=== PATIENT | female | born 1930 | race Caucasian/White ===

== ENCOUNTER 2021-02-21 12:19 | Inpatient (IN) | payer OTHER, MEDICAID ==
[~2021-02-21] VITALS: Ht 157.5 cm; Wt 45.4 kg
[2021-02-21] MEDS ORDERED: cefTRIAXone 1,000 MG in DEXT 5% MINI-BAG PLUS 50 ML IV ONE (12:25)
--- NOTE | 2021-02-21 12:31 | NUR ---
PT TAKEN TO CT SCAN VIA [facility]
[2021-02-21 12:33] VITALS: BP 141/74
--- NOTE | 2021-02-21 12:41 | NUR ---
PT TAKEN TO ER BED 7 VIA [facility].
--- NOTE | 2021-02-21 12:41 | NUR ---
PT RETURNED FROM CT SCAN. XRAY AT BEDSIDE
--- NOTE | 2021-02-21 12:41 | NUR ---
DRESSING MACHINE OPERATOR AT PT BEDSIDE.
--- NOTE | 2021-02-21 13:00 | NUR ---
89/F CHAO FROM [facility]. PER EMS STAFF CALLED 911 BECAUSE PATIENT WAS BEING AGGRESSIVE TOWARDS STAFF. EMS STATING PATIENT HAS NO C/O AT THIS TIME, REPORTS WAS D[place] [facility] WITH DX OF PNA. GCS 14. PT IS CONFUSED. ON ROOM AIR. MEDHX: DEMENTIA, HTN, OSTEOPOROSIS, CHOLESTEROL ALLERGIES: NKA
--- NOTE | 2021-02-21 13:10 | NUR ---
# 16 FR Urinary catheter inserted utilizing sterile technique. Immediate return of 30 ml YELLOW urine noted. Urine sample collected and sent to lab. Pt tolerated procedure WELL.
--- NOTE | 2021-02-21 13:10 | NUR ---
BLOOD LABS AND ARTURO SWAB COLLECTED AND SENT TO LAB [facility] CPT
[2021-02-21] MEDS ORDERED: cefTRIAXone 1,000 MG VIAL ONE (13:12)
[2021-02-21 13:53] LABS: APPEARANCE,URINE CLEAR (CLEAR); BILIRUBIN,URINE NEGATIVE (NEGATIVE); BLOOD, URINE TRACE-I (NEGATIVE); COLOR,URINE YELLOW (YELLOW); LEUKOCYTE ESTERASE ,URINE NEGATIVE (NEGATIVE); NITRITE, URINE NEGATIVE (NEGATIVE); UGLUCOSE NEGATIVE (NEGATIVE)
[2021-02-21 14:04] LABS: ALBUMIN 3.6 g/dL (3.4-5.0); ASPARTATE AMINOTRANSFERASE 41 U/L (15-37); CARBON DIOXIDE 29.9 mmol/L (21-32); CHLORIDE 104 mmol/L (98-107); CREATININE 0.9 mg/dL (0.6-1.3); GLUCOSE 127 mg/dL (74-106); POTASSIUM 3.9 mmol/L (3.5-5.1); SODIUM SERUM 140 mmol/L (136-145); TOTAL BILIRUBIN 0.5 mg/dL (0.0-1.0); UREA NITROGEN, BLOOD 16 mg/dL (7-18)
--- NOTE | 2021-02-21 15:30 | NUR ---
PER DR MCCOY, HOLD ORDERS FOR CT SCAN WITH CONTRAST
[2021-02-21 15:43] LABS: BASOPHILS # (AUTO) 0.1 K/uL (0.00-0.22); BASOPHILS % (AUTO) 0.8 % (0.0-2.0); EOSINOPHILS % (AUTO) 0.5 % (0.0-4.0); HEMATOCRIT 38.1 % (36-48); HEMOGLOBIN 12.9 g/dL (12.0-16.0); LYMPHOCYTES # (AUTO) 0.7 K/uL (2.5-16.5); LYMPHOCYTES % (AUTO) 8.7 % (20.5-51.1); MEAN CORPUSCULAR HEMOGLOBIN 31 pg (27-31); MEAN CORPUSCULAR HGB CONC 34 g/dL (33-37); MEAN CORPUSCULAR VOLUME 90.6 fL (80-94); MONOCYTES # (AUTO) 0.5 K/uL (0.8-1.0); MONOCYTES % (AUTO) 7.3 % (1.7-9.3); NEUTROPHILS # (AUTO) 6.2 K/uL (1.8-7.7); NEUTROPHILS % (AUTO) 82.7 % (42.2-75.2); PLATELET COUNT (AUTO) 267 K/uL (140-450); RED CELL DISTRIBUTION WIDTH 14.2 % (11.6-13.7); WHITE BLOOD COUNT (AUTO) 7.5 K/uL (4.8-10.8)
[2021-02-21] MEDS ORDERED: ASPI-1822 PO (15:52)
[2021-02-21] MEDS ORDERED: ATOR20TA PO (15:52)
[2021-02-21] MEDS ORDERED: DONE10TA10 PO (15:52)
[2021-02-21] MEDS ORDERED: HYDR-4004 PO (15:52)
[2021-02-21] MEDS ORDERED: FOS70 PO (15:52)
--- NOTE | 2021-02-21 16:28 | NUR ---
Patient will be admitted to care of DR SUAREZ. Admited to MED SURG. Will go to room 122 B. Belongings list completed. Report to ALEX REARDON.
--- NOTE | 2021-02-21 16:30 | NUR ---
REPORT RECEIVED FROM ER NURSE. PT WILL BE TRANSPORTED TO ROOM 122B UNDER DR SUAREZ.
[2021-02-21 16:35] VITALS: BP 155/75
--- NOTE | 2021-02-21 16:45 | NUR ---
PT ARRIVED ON FLOOR VIA GURNEY, PATIENT MOVED TO BED WITH ASSISTANCE. ON ROOM AIR, NO S/S OF DISTRESS OR SOB NOTED. RAPID NEGATIVE. IV SITE LAC 20G INTACT, ASYMPTOMATIC, SL. PATIENT DENIES PAIN. DX AMS AND PNA. PATIENT LUXEMBOURGISH SPEAKING. CONFUSED BUT OBEYS COMMANDS. ORIENTED PATIENT TO ROOM, BATHROOM, CALL LIGHT, AND TV. SAFETY PRECAUTIONS IN PLACE, CALL LIGHT IN PLACE, WILL CONTINUE TO MONITOR PATIENT.
--- NOTE | 2021-02-21 16:55 | NUR ---
PATIENT AMBULATED TO BATHROOM WITH ASSIST. PATIENT VOIDED. NOW BACK IN BED, NO COMPLAINTS AT THIS TIME. WILL CONTINUE TO MONITOR PATIENT. CALLED DR. SUAREZ FOR ADMIT ORDERS.
[2021-02-21] MEDS ORDERED: guaiFENesin DM 200/20 MG-10 ML 10 ML UDC PO PRN (17:40)
[2021-02-21] MEDS ORDERED: HYDROcodone/APAP 7.5/325 MG 1 TAB PO PRN (17:40)
[2021-02-21] MEDS ORDERED: ONDANSETRON 4 MG/2 ML VIAL IM/IVP PRN (17:40)
[2021-02-21] MEDS ORDERED: ZOLPIDEM 5 MG TAB PO PRN (17:40)
[2021-02-21] MEDS: DEXT 5% /NACL 0.9% 1,000 ML IV SCH (17:40)
[2021-02-21] MEDS ORDERED: DOCUSATE SODIUM 100 MG GELCAP PO PRN (17:40)
[2021-02-21] MEDS ORDERED: ACETAMINOPHEN 325 MG TAB PO PRN (17:40)
[2021-02-21] MEDS ORDERED: POTASSIUM CHLORIDE 10 MEQ TABER PO PRN (17:40)
[2021-02-21] MEDS ORDERED: NACL 0.9% 1,000 ML IV ONE (17:45)
--- NOTE | 2021-02-21 17:45 | NUR ---
PRN ativan given as ordered by Dr. Meraz for agitation. Patient confused, attempting to get out of bed, tried to orient patient to room and hospital, patient got more agitated. Patient kicking and slapping staff.
[2021-02-21] MEDS ORDERED: LORazepam 2 MG/ML VIAL IVP PRN (17:55)
[2021-02-21] MEDS ORDERED: LORazepam 2 MG/ML VIAL ONE (17:57)
[2021-02-21] MEDS ORDERED: HALOPERIDOL IM 5 MG/ML VIAL IM PRN (18:15)
--- NOTE | 2021-02-21 18:15 | NUR ---
Dr Meraz on the floor, patient still kicking, slapping, and screaming. New orders in for bilateral soft wrist restraint. Patient now resting in bed, bed alarm on, will continue to monitor patient.
[2021-02-21] MEDS ORDERED: PIPERACILLIN/TAZOBACTAM 3.375 GM VIAL IV ONE ×2 (18:41→23:00)
[2021-02-21] MEDS: PIPERACILLIN/TAZOBACTAM 3.375 GM in DEXTROSE 5% 50 ML IV SCH ×2 (18:42→23:10)
--- NOTE | 2021-02-21 18:50 | NUR ---
IV INFILTRATED, NEW IV INSERTED, ON LEFT FA 22 G. ORDERED ZOSYN STARTED. WILL CONTINUE TO MONITOR PATIENT.
--- NOTE | 2021-02-21 19:30 | NUR ---
RECEIVED PATIENT FROM AM SHIFT NURSE FOR CONTINUITY OF CARE. AWAKE WITH CONFUSION, ABLE TO MAKE SIMPLE NEEDS KNOWN. RESPIRATIONS EVEN, UNLABORED. NO S/S RESPIRATORY DISTRESS. S1/S2 AUSCULTATED. MEDSURG PATIENT. NO C/O PAIN. SKIN WARM, DRY. BSWR IN PLACE. ADEQUATE CIRCULATION TO BUE. SKIN INTEGRITY MAINTAINED. IV SITE TO LEFT FOREARM 22G PATENT/INTACT, INFUSING FLUIDS WELL. ABDOMEN SOFT, NONTENDER, NONDISTENDED. BOWEL SOUNDS ACTIVE x4 QUADRANTS. PATIENT IS INCONTINENT OF B/B. PLAN OF CARE DISCUSSED. SAFETY PRECAUTIONS IN PLACE.
--- NOTE | 2021-02-21 19:30 | NUR ---
REPORT GIVEN TO SERVICE ORDER EXPEDITER RN. PATIENT RESTING IN BED. NO COMPLAINTS AT THIS TIME.
[2021-02-21 19:59] LABS: PROTHROMBIN TIME 10.4 secs (10.8-13.4)
[2021-02-21 20:31] LABS: CHOL/HDL RATIO 1.5 (1-4.5); FREE T4 (FREE THYROXINE) 0.94 ng/dL (0.76-1.46); MAGNESIUM 2.1 mg/dL (1.8-2.4); PHOSPHORUS 3.5 mg/dL (2.5-4.9); THYROID STIMULATING HORMONE 3.14 uIU/mL (0.34-3.74)
[2021-02-21] MEDS ORDERED: DONEPEZIL 10 MG TAB PO SCH (21:00)
--- NOTE | 2021-02-21 21:30 | NUR ---
RELEASED PATIENT FROM BSWR TO EAT SNACKS. PATIENT GREW AGGRESSIVE AND RESTRAINTS REPLACED. PATIENT VERY CONFUSED. ALL OTHER NEEDS MET. FREQUENT ROUNDS BY ALL STAFF.
[2021-02-21] MEDS: ATORVASTATIN 20 MG TAB PO SCH (21:32)
--- NOTE | 2021-02-21 23:27 | NUR ---
INCONTINENT CARE RENDERED. NO S/S RESPIRATORY DISTRESS. DENIES PAIN. CALL LIGHT IN REACH. SAFETY PRECAUTIONS IN PLACE.
[2021-02-22] VITALS: BP 119/51
--- NOTE | 2021-02-22 01:25 | NUR ---
MADE ROUNDS. PATIENT IS ASLEEP. NO S/S RESPIRATORY DISTRESS. PATIENT IS CLEAN/DRY. CALL LIGHT WITHIN REACH. SAFETY PRECAUTIONS IN PLACE.
--- NOTE | 2021-02-22 03:00 | NUR ---
INCONTINENT CARE RENDERED. NO S/S RESPIRATORY DISTRESS. NO C/O PAIN. BSWR IN PLACE. ADEQUATE CIRCULATION TO BUE. NO EPISODE OF AGGRESSIVE BEHAVIOR AT THIS TIME, HOWEVER CONTINUES TO NEED RESTRAINT DUE TO PULLING AT LINES. BSWR RELEASED PER PROTOCOL. CALL LIGHT IN REACH. SAFETY PRECAUTIONS IN PLACE.
[2021-02-22] MEDS ORDERED: PIPERACILLIN/TAZOBACTAM 3.375 GM VIAL IV ONE (05:04)
[2021-02-22] MEDS: PIPERACILLIN/TAZOBACTAM 3.375 GM in DEXTROSE 5% 50 ML IV SCH ×3 (05:09→20:17)
--- NOTE | 2021-02-22 05:30 | NUR ---
ALL NEEDS ANTICIPATED AND MET. INCONTINENT CARE RENDERED. NO S/S RESPIRATORY DISTRESS. NO C/O PAIN. CALL LIGHT IN REACH. SAFETY PRECAUTIONS IN PLACE.
--- NOTE | 2021-02-22 07:26 | NUR ---
ENDORSED PATIENT TO AM SHIFT NURSE FOR CONTINUITY OF CARE.
--- NOTE | 2021-02-22 07:30 | NUR ---
RECEIVED PATIENT FROM WELLNESS RN NURSE FOR CONTINUITY OF CARE. AOX1. RESPIRATIONS EVEN, UNLABORED. NO S/S RESPIRATORY DISTRESS. SKIN WARM, DRY. BUE RESTRAINTS IN PLACE. SKIN INTEGRITY MAINTAINED. IV SITE TO LEFT FOREARM 22G PATENT/INTACT, INFUSING FLUIDS WELL. PLAN OF CARE DISCUSSED. SAFETY PRECAUTIONS IN PLACE. WILL CONTINUE TO MONITOR.
[2021-02-22 07:46] LABS: BASOPHILS # (AUTO) 0.1 K/uL (0.00-0.22); BASOPHILS % (AUTO) 0.7 % (0.0-2.0); EOSINOPHILS # (AUTO) 0.2 K/uL (0-0.4); EOSINOPHILS % (AUTO) 1.9 % (0.0-4.0); HEMATOCRIT 38.6 % (36-48); HEMOGLOBIN 12.7 g/dL (12.0-16.0); LYMPHOCYTES # (AUTO) 1.1 K/uL (2.5-16.5); MEAN CORPUSCULAR HEMOGLOBIN 30 pg (27-31); MEAN CORPUSCULAR HGB CONC 33 g/dL (33-37); MEAN CORPUSCULAR VOLUME 92.1 fL (80-94); MONOCYTES # (AUTO) 0.9 K/uL (0.8-1.0); MONOCYTES % (AUTO) 10.4 % (1.7-9.3); NEUTROPHILS # (AUTO) 6.4 K/uL (1.8-7.7); PLATELET COUNT (AUTO) 267 K/uL (140-450); RED BLOOD CELL COUNT(AUTO) 4.19 MIL/uL (4.20-5.40); RED CELL DISTRIBUTION WIDTH 14.2 % (11.6-13.7); WHITE BLOOD COUNT (AUTO) 8.6 K/uL (4.8-10.8)
[2021-02-22 08:00] VITALS: BP 163/70
[2021-02-22 08:05] LABS: ANION GAP 6.7 (8-16); CARBON DIOXIDE 30.9 mmol/L (21-32); CHLORIDE 106 mmol/L (98-107); CREATININE 0.9 mg/dL (0.6-1.3); GLUCOSE 94 mg/dL (74-106); POTASSIUM 3.6 mmol/L (3.5-5.1); SODIUM SERUM 140 mmol/L (136-145); UREA NITROGEN, BLOOD 17 mg/dL (7-18)
[2021-02-22] MEDS: hydroCHLOROthiazide 25 MG TAB PO SCH (09:28)
[2021-02-22] MEDS: PANTOPRAZOLE 40 MG TABEC PO SCH (09:28)
[2021-02-22] MEDS: ASPIRIN 81 MG TAB.CHEW PO SCH (09:28)
--- NOTE | 2021-02-22 09:30 | NUR ---
ALL SCHEDULED MEDS GIVEN. PT IS STABLE. NO DISTRESS NOTED. WILL CONTINUE TO MONITOR.
[2021-02-22] MEDS: DEXT 5% /NACL 0.9% 1,000 ML IV SCH (10:32)
--- NOTE | 2021-02-22 11:40 | NUR ---
DC BILATERAL RESTRAINTS. PATIENT IS STABLE. NO AGGRESSIVE BEHAVIOR WAS DISPLAYED.
--- NOTE | 2021-02-22 13:00 | NUR ---
ALL SCHEDULED MEDS GIVEN. PT IS STABLE. NO DISTRESS NOTED. WILL CONTINUE TO MONITOR.
--- NOTE | 2021-02-22 15:29 | NUR ---
PATIENT WAS SHOWING SIGNS OF INCREASED ANXIETY. ADMINISTERED HALDOL IM PER MD ORDERED.
[2021-02-22 16:00] VITALS: BP 125/44
--- NOTE | 2021-02-22 17:10 | NUR ---
CHECKED ON PATIENT. PT WAS ASLEEP. NOTED CHEST RISE AND FALL. NO DISTRESS NOTED. WILL CONTINUE TO MONITOR.
--- NOTE | 2021-02-22 19:12 | NUR ---
ENDORSED TO FLIGHT RADIO OFFICER NURSE FOR CONTINUITY OF CARE. PT IS STABLE.
--- NOTE | 2021-02-22 19:15 | NUR ---
RECEIVED REPORT FROM DAYSHIFT NURSE FOR CONTINUITY OF CARE. PT ON STABLE CONDITION
--- NOTE | 2021-02-22 19:52 | NUR ---
RECEIVED REPORT FROM DAYSNJFT NURSE FOR CONTINUITY OF CARE.
[2021-02-22 20:00] VITALS: BP 126/50
[2021-02-22] MEDS: ATORVASTATIN 20 MG TAB PO SCH (20:14)
--- NOTE | 2021-02-22 21:00 | NUR ---
ALL SCHEDULED MEDS GIVEN, PT TOLERATED WELL. NO SIGNS OF DISTRESS. SAFETY MEASURES IMPLEMENTED
[2021-02-23] MEDS: DEXT 5% /NACL 0.9% 1,000 ML IV SCH ×2 (03:14→19:40)
[2021-02-23 04:00] VITALS: BP 142/68
--- NOTE | 2021-02-23 04:00 | NUR ---
PATIENT RESTING ON BED, NO SIGNS OF DISTRESS. ON ROOM AIR, SAFETY MEASURES IMPLEMENTED.
[2021-02-23] MEDS: PIPERACILLIN/TAZOBACTAM 3.375 GM in DEXTROSE 5% 50 ML IV SCH ×3 (05:23→21:15)
[2021-02-23 05:56] LABS: ANION GAP 9.4 (8-16); CARBON DIOXIDE 30.2 mmol/L (21-32); CHLORIDE 105 mmol/L (98-107); CREATININE 1.1 mg/dL (0.6-1.3); GLUCOSE 88 mg/dL (74-106); POTASSIUM 3.6 mmol/L (3.5-5.1); SODIUM SERUM 141 mmol/L (136-145); UREA NITROGEN, BLOOD 17 mg/dL (7-18)
[2021-02-23 06:07] LABS: BASOPHILS # (AUTO) 0.1 K/uL (0.00-0.22); EOSINOPHILS # (AUTO) 0.1 K/uL (0-0.4); HEMATOCRIT 34.1 % (36-48); HEMOGLOBIN 11.5 g/dL (12.0-16.0); LYMPHOCYTES # (AUTO) 1.2 K/uL (2.5-16.5); LYMPHOCYTES % (AUTO) 20.2 % (20.5-51.1); MEAN CORPUSCULAR HEMOGLOBIN 31 pg (27-31); MEAN CORPUSCULAR HGB CONC 34 g/dL (33-37); MEAN CORPUSCULAR VOLUME 90.9 fL (80-94); MONOCYTES # (AUTO) 0.6 K/uL (0.8-1.0); MONOCYTES % (AUTO) 10.6 % (1.7-9.3); NEUTROPHILS # (AUTO) 3.8 K/uL (1.8-7.7); NEUTROPHILS % (AUTO) 66.2 % (42.2-75.2); PLATELET COUNT (AUTO) 251 K/uL (140-450); RED BLOOD CELL COUNT(AUTO) 3.75 MIL/uL (4.20-5.40); RED CELL DISTRIBUTION WIDTH 14.3 % (11.6-13.7); WHITE BLOOD COUNT (AUTO) 5.8 K/uL (4.8-10.8)
[2021-02-23 06:16] LABS: T4 (THYROXINE) 7.8 ug/dL (4.5-12.0)
--- NOTE | 2021-02-23 07:30 | NUR ---
RECEIVED BEDSIDE REPORT FROM STITCH BONDING MACHINE TENDER HELPER NURSE EDITA RN, PT RESTING IN BED, NO DISTRESS NOTED, IV TO L FA 22G, PATENT INTACT, INFUSING D5NS @ 40ML/HR, INFUSING WELL, PT ON ROOM AIR, NO SOB NOTED, INITIAL ASSESSMENT DONE, ALL SAFETY PRECAUTION MET, CALL LIGHT WITHIN REACH, WILL CONTINUE TO MONITOR.
--- NOTE | 2021-02-23 07:42 | NUR ---
ENDORSE PT TO DAYSHIFT NURSE FOR CONTINUITY OF CARE. PT STABLE
[2021-02-23 08:00] VITALS: BP 150/66
--- NOTE | 2021-02-23 08:56 | NUR ---
PATIENT HAS BEEN SCREENED AND CATEGORIZED HIGH NUTRITION RISK. PATIENT WILL BE SEEN WITHIN 1-2 DAYS OF ADMISSION. 02/23/[address]
[2021-02-23] MEDS: PANTOPRAZOLE 40 MG TABEC PO SCH (09:04)
[2021-02-23] MEDS: ASPIRIN 81 MG TAB.CHEW PO SCH (09:04)
[2021-02-23] MEDS: hydroCHLOROthiazide 25 MG TAB PO SCH (09:04)
--- NOTE | 2021-02-23 09:05 | NUR ---
DUE MEDICATIONS ADMINISTERED PT TOLERATED WELL, NO DISTRESS NOTED, WILL CONTINUE TO MONITOR.
--- NOTE | 2021-02-23 12:05 | NUR ---
DC PLANNING: EDEPAK SPOKE WITH MISSAEL AT [facility] ([phone]), SHE STATES THAT PATIENTS ADMISSION IS AUTHORIZED, TRACKING # [id number]. DISCUSSED OPTION OF PATIENT GOING BACK TO [facility] VS SNF IF IV ABX ARE NEEDED, MISSAEL STATES THAT [facility] WILL DECIDE WHERE PT/OT ARE GIVEN IF PATIENT REQUIRES THIS. PER MISSAEL THERAPISTS COULD GO TO [facility] OR THE PATIENT CAN DO OP THERAPY, P.T. NOTES WOULD HAVE TO BE FAXED FOR [facility] TO DETERMINE THIS. LIST OF CONTRACTED SNF'S GIVEN, [facility], [facility], [facility], [facility] AND [facility]. CONTRACTED NON-MEDICAL TRANSPORT IS [facility] ([phone]), [facility] ([phone]) AND [facility] (ASK FOR [facility], DISPATCH [phone]). TRANSPORT AUTH WILL BE GIVEN BY [facility] ONCE PATIENT IS DC'D, [facility] CAN ALSO PROVIDE NON-MEDICAL TRANSPORT UP UNTIL 2:PM. DEEPAK ALSO SPOKE WITH THE PATIENTS CHER ALCARAZ BY PHONE, PATIENT WAS LIVING AT HOME WITH 24/7 CAREGIVERS BUT HER DEMENTIA PROGRESSED AND THE PATIENT WAS PLACED IN MEMORY CARE AT [facility] 2 WEEKS AGO. DISCUSSED SNF VS [facility] DEPENDING ON NEEDS, SOURAV IN AGREEMENT WITH EITHER PLAN, DEEPAK WILL KEEP HER UPDATED ON PLAN AND DC DATE. PATIENT WAS EVALUATED BY P.T., BETTE STATES THAT PATIENT IS SBA WITH AMBULATION USING A FWW AND IS ABLE TO WALK ABOUT 50 FEET. WAITING FOR FINAL MD CLEARANCE AND CLINICAL STABILITY. DEEPAK WILL FOLLOW FOR NEEDS. Addendum: 02/24/21 at 1105 by Dipti Lozoya CM DC PLANNING: DEEPAK SPOKE WITH ALEXUS AT [facility], ASKED HER TO ARRANGE TRANSPORT BACK TO [facility], ALEXUS STATES SHE WILL HAVE TRANSPORT CALL CM WITH PICK-UP TIME. DEEPAK ALSO SPOKE WITH IHSAN ( [phone]) AT [employer], ORDERS FOR PT AND PT NOTES TO BE FAXED TO HER AT [phone] SO [facility] CAN ARRANGE PT SERVICES. DEEPAK ALSO INFORMED PATIENT PRIMARY CONTACT SOURAV ALCARAZ THAT PATIENT IS RETURNING TO [facility]. PATIENTS RN BLAKE WAS ALSO MADE AWARE OF THE PATIENTS PICK-UP TIME. CM WILL FOLLOW FOR NEEDS.
--- NOTE | 2021-02-23 12:05 | NUR ---
IV MEDICATION ZOSYN DUE, MEDICATION ADMINISTERED, PT TOLERATED WELL, NO DISTRESS NOTED, WILL CONTINUE TO MONITOR.
--- NOTE | 2021-02-23 13:25 | NUR ---
02/23/21 RD INITIAL ASSESSMENT COMPLETED PLEASE REFER TO NUTRITION ASSESSMENT UNDER CARE ACTIVITY FOR ESTIMATED NUTRITIONAL NEEDS. 1. CONTINUE PUREE DIET TOLERATED 2. IF PO INTAKE FALLS BELOW 50% CONSIDER ENSURE BID 3. RD TO FOLLOW-UP 3-5 DAYS, MODERATE RISK DAPHNE ROMERO, RD
[2021-02-23 16:00] VITALS: BP 149/57
--- NOTE | 2021-02-23 16:20 | NUR ---
PT STARTED SCREAMING, AND CONFUSED, STATED THERE IS ANOTHER SARWAT. CALMED PT DOWN AND REORIENT PT. PT CALM AND COOPERATIVE. WILL CONTINUE TO MONITOR.
--- NOTE | 2021-02-23 19:21 | NUR ---
ENDORSED PT TO MINING CAPTAIN NURSE EDITA REARDON FOR CONTINUOUS OF CARE.
--- NOTE | 2021-02-23 19:22 | NUR ---
RECEIVED REPORT FROM DAYSHIFT NURSE FOR CONTINUITY OF CARE. PT ON ROOM AIR, NO SIGNS OF DISTRESS.
[2021-02-23 20:00] VITALS: BP 120/51
--- NOTE | 2021-02-23 21:00 | NUR ---
ALL SCHEDULED MEDICATIONS GIVEN, PT TOLERATED WELL, NO SIGNS OF DISTRESS, PT ON ROOM AIR, SAFETY MEASURES IMPLEMENTED.
[2021-02-23] MEDS: ATORVASTATIN 20 MG TAB PO SCH (21:18)
[2021-02-23] MEDS: QUEtiapine FUMARATE 25 MG TAB PO SCH (21:18)
--- NOTE | 2021-02-24 | NUR ---
PT ASLEEP, NO SIGNS OF DISTRESS, ON ROOM AIR, SAFETY MEASURES IMPLEMENTED, CALL LIGHT WITHIN REACH.
[2021-02-24 00:19] VITALS: BP 120/51
--- NOTE | 2021-02-24 02:00 | NUR ---
PT ASLEEP NO SIGNS OF DISTRESS. ON ROOM AIR. SAFETY MEASURES IMPLEMENTED, CALL LIGHT WITHIN REACH.
[2021-02-24 04:00] VITALS: BP 124/62
[2021-02-24] MEDS: PIPERACILLIN/TAZOBACTAM 3.375 GM in DEXTROSE 5% 50 ML IV SCH (04:00)
[2021-02-24 06:08] LABS: ANION GAP 10.8 (8-16); CARBON DIOXIDE 30.8 mmol/L (21-32); CHLORIDE 104 mmol/L (98-107); CREATININE 1.2 mg/dL (0.6-1.3); GLUCOSE 99 mg/dL (74-106); POTASSIUM 3.6 mmol/L (3.5-5.1); SODIUM SERUM 142 mmol/L (136-145); UREA NITROGEN, BLOOD 14 mg/dL (7-18)
[2021-02-24 06:25] LABS: BASOPHILS # (AUTO) 0.1 K/uL (0.00-0.22); BASOPHILS % (AUTO) 1.3 % (0.0-2.0); EOSINOPHILS # (AUTO) 0.2 K/uL (0-0.4); EOSINOPHILS % (AUTO) 3.2 % (0.0-4.0); HEMATOCRIT 32.9 % (36-48); HEMOGLOBIN 11.1 g/dL (12.0-16.0); LYMPHOCYTES # (AUTO) 1.4 K/uL (2.5-16.5); LYMPHOCYTES % (AUTO) 24.5 % (20.5-51.1); MEAN CORPUSCULAR HEMOGLOBIN 30 pg (27-31); MEAN CORPUSCULAR HGB CONC 34 g/dL (33-37); MEAN CORPUSCULAR VOLUME 90.2 fL (80-94); MONOCYTES # (AUTO) 0.7 K/uL (0.8-1.0); MONOCYTES % (AUTO) 12.6 % (1.7-9.3); NEUTROPHILS # (AUTO) 3.3 K/uL (1.8-7.7); NEUTROPHILS % (AUTO) 58.4 % (42.2-75.2); PLATELET COUNT (AUTO) 234 K/uL (140-450); RED BLOOD CELL COUNT(AUTO) 3.65 MIL/uL (4.20-5.40); RED CELL DISTRIBUTION WIDTH 14.5 % (11.6-13.7); WHITE BLOOD COUNT (AUTO) 5.7 K/uL (4.8-10.8)
--- NOTE | 2021-02-24 07:24 | NUR ---
ENDORSE PT TO DAYSHIFT NURSE. PT ON STABLE CONDITION
--- NOTE | 2021-02-24 07:25 | NUR ---
RECEIVED BEDSIDE REPORT FROM METAL POURER NURSE PT SLEEPING, NO DISTRESS NOTED, IV TO LEFT FA 22G PATENT INTACT, INFUSING D5NS @ 40ML/HR, INFUSING WELL, PT ON ROOM AIR, NO SOB NOTED, INITIAL ASSESSMENT DONE, ALL SAFETY PRECAUTION MET, CALL LIGHT WITHIN REACH, WILL CONTINUE TO MONITOR.
[2021-02-24 08:00] VITALS: BP 134/51
[2021-02-24] MEDS: hydroCHLOROthiazide 25 MG TAB PO SCH (09:26)
[2021-02-24] MEDS: ASPIRIN 81 MG TAB.CHEW PO SCH (09:26)
[2021-02-24] MEDS: PANTOPRAZOLE 40 MG TABEC PO SCH (09:26)
[2021-02-24] MEDS: QUEtiapine FUMARATE 25 MG TAB PO SCH (09:27)
--- NOTE | 2021-02-24 09:38 | NUR ---
DUE MEDICATIONS ADMINISTERED, PT TOLERATED WELL, NO DISTRESS NOTED, WILL CONTINUE TO MONITOR.
[2021-02-24] MEDS ORDERED: ACET-1182 PO (09:59)
[2021-02-24] MEDS ORDERED: PANT40EC56 PO (09:59)
[2021-02-24] MEDS ORDERED: QUET25TA46 PO (09:59)
[2021-02-24] MEDS ORDERED: DOCU-299 PO (09:59)
[2021-02-24] MEDS ORDERED: AMOX-1000 PO (10:00)
[2021-02-24 11:30] VITALS: BP 134/51
--- NOTE | 2021-02-24 11:55 | NUR ---
ATTEMPTED TO CALL NIECE, NEXT OF KIN SOURAV NO ANSWER, UNABLE TO LEFT MESSAGE.
--- NOTE | 2021-02-24 12:00 | NUR ---
PT LEFT UNIT, VIA WHEELCHAIR, PICKED UP BY [facility] STAFF [facility].
--- NOTE | 2021-02-24 12:05 | NUR ---
CALLED ROSA KELLY NEXT OF KIN NEPHEW, NO ANSWER, LEFT MESSAGE.
== END 2021-02-24 12:26 | DRG 177 ==
LOC: MED 12:19 → MTU 15:44
PROVIDERS: ADMIT Family Medicine; ATTEND Family Medicine
DX: J69.0 Pneumonitis due to inhalation of food and vomit (principal); G93.41 Metabolic encephalopathy; J96.01 Acute respiratory failure with hypoxia; E78.5 Hyperlipidemia, unspecified; E86.0 Dehydration; F03.90 Unspecified dementia, unspecified severity, without behavioral disturbance, psychotic disturbance, mood disturbance, and anxiety; I10 Essential (primary) hypertension; I25.10 Atherosclerotic heart disease of native coronary artery without angina pectoris; R74.01 Elevation of levels of liver transaminase levels; E03.9 Hypothyroidism, unspecified; Z20.822 Contact with and (suspected) exposure to COVID-19; R13.10 Dysphagia, unspecified; F29 Unspecified psychosis not due to a substance or known physiological condition; Z79.899 Other long term (current) drug therapy; Z79.82 Long term (current) use of aspirin
CPT/HCPCS: 36415; 70450; 71045; 80048; 80053; 81003; 82150; 83036; 83605; 83690; 83735; 83880; 84100; 84436; 84439; 84443; 84479; 84484; 85025; 85610; 85730; 87040; 87081; 87086; 93005; 96365; 96375; 97110; 97112; 97116; 97163-GP; 97530; 99285; J0696; J1630; J1644; J2060; J2405; J2543; J7060

== ENCOUNTER 2021-03-01 11:38 | Inpatient (IN) | payer OTHER, MEDICAID ==
[~2021-03-01] VITALS: Ht 167.6 cm; Wt 63.5 kg
[~2021-03-01 11:38] MED LIST: ACET-1182 PO; AMOX-1000 PO; ASPI-1822 PO; ATOR20TA PO; DOCU-299 PO; DONE10TA10 PO; FOS70 PO; HYDR-4004 PO; PANT40EC56 PO; QUET25TA46 PO
--- NOTE | 2021-03-01 11:39 | NUR ---
PT CHAO VIA GURNEY TO BED 12.
[2021-03-01 12:04] VITALS: BP 118/68
[2021-03-01 12:24] LABS: APPEARANCE,URINE CLEAR (CLEAR); BILIRUBIN,URINE 1+ (NEGATIVE); BLOOD, URINE TRACE-I (NEGATIVE); COLOR,URINE YELLOW (YELLOW); LEUKOCYTE ESTERASE ,URINE 1+ (NEGATIVE); NITRITE, URINE NEGATIVE (NEGATIVE); UGLUCOSE NEGATIVE (NEGATIVE)
--- NOTE | 2021-03-01 12:26 | NUR ---
STRAIGHT CATH FR 15 INSERTED, DRAINED 100CC CLEAR YELLOW URINE. PT TOLERATED PROCEDURE WELL.
[2021-03-01 12:34] LABS: RBC,URINE 0-5 /HPF (0-5); WBC,URINE 0-5 /HPF (0-5)
--- NOTE | 2021-03-01 12:34 | NUR ---
89YO F BIBA FROM [facility] C/O GENERALIZED WEAKNESS X 2 DAYS. PT REFUSING TO EAT MEALS AND TAKE MEDICATIONS. IN ED, VSS. AOX1- TO NAME. PT IS COOPERATIVE AND CALM. CLEAR BREATH SOUNDS. HEART RATE NORMAL, REGULAR RHYTHM. MOTOR STRENGTH 4/5 ON ALL EXTREMITIES. 2 SIDERAILS UP. ERMD MADE AWARE OF PT STATUS. PMH: DEMENTIA, OSTEOPOROSIS, HLD, HTN MEDS: ALENDRONATE, ASA, ATORVASTATIN, HCTZ, DONEZEPIL NKA
[2021-03-01 14:02] LABS: BASOPHILS % (AUTO) 0.6 % (0.0-2.0); EOSINOPHILS % (AUTO) 0.2 % (0.0-4.0); HEMATOCRIT 34.2 % (36-48); HEMOGLOBIN 11.4 g/dL (12.0-16.0); LYMPHOCYTES # (AUTO) 0.7 K/uL (2.5-16.5); LYMPHOCYTES % (AUTO) 11.9 % (20.5-51.1); MEAN CORPUSCULAR HEMOGLOBIN 31 pg (27-31); MEAN CORPUSCULAR HGB CONC 33 g/dL (33-37); MEAN CORPUSCULAR VOLUME 91.7 fL (80-94); MONOCYTES # (AUTO) 0.6 K/uL (0.8-1.0); MONOCYTES % (AUTO) 9.6 % (1.7-9.3); NEUTROPHILS # (AUTO) 4.7 K/uL (1.8-7.7); NEUTROPHILS % (AUTO) 77.7 % (42.2-75.2); PLATELET COUNT (AUTO) 239 K/uL (140-450); RED BLOOD CELL COUNT(AUTO) 3.73 MIL/uL (4.20-5.40); RED CELL DISTRIBUTION WIDTH 14.3 % (11.6-13.7)
[2021-03-01 14:29] LABS: ALBUMIN 3.7 g/dL (3.4-5.0); ANION GAP 11.2 (8-16); ASPARTATE AMINOTRANSFERASE 40 U/L (15-37); CARBON DIOXIDE 30.2 mmol/L (21-32); CHLORIDE 106 mmol/L (98-107); CREATININE 1.1 mg/dL (0.6-1.3); GLUCOSE 91 mg/dL (74-106); POTASSIUM 3.4 mmol/L (3.5-5.1); SODIUM SERUM 144 mmol/L (136-145); TOTAL BILIRUBIN 0.6 mg/dL (0.0-1.0); UREA NITROGEN, BLOOD 42 mg/dL (7-18)
[2021-03-01] MEDS ORDERED: cefTRIAXone 1,000 MG VIAL ONE (15:26)
[2021-03-01] MEDS: NACL 0.9% 1,000 ML IV SCH (17:00)
--- NOTE | 2021-03-01 17:17 | NUR ---
CALLED VISHNU BURCH TO CHECK VACCINATION STATUS OF PATIENT. PER NABILA REARDON, PATIENT HAS NOT BEEN VACCINATED.
[2021-03-01] MEDS ORDERED: ONDANSETRON 4 MG/2 ML VIAL IVP PRN (17:20)
[2021-03-01] MEDS ORDERED: DOCUSATE SODIUM 100 MG GELCAP PO PRN (17:20)
[2021-03-01] MEDS ORDERED: ZOLPIDEM 5 MG TAB PO PRN (17:20)
[2021-03-01] MEDS ORDERED: MORPHINE SULFATE 2 MG/ML SYR IVP PRN (17:20)
[2021-03-01] MEDS ORDERED: ACETAMINOPHEN 325 MG TAB PO PRN (17:20)
[2021-03-01] MEDS ORDERED: MAG SULF 2000 MG/WATER PREMIX 50 ML IV PRN (17:20)
[2021-03-01] MEDS ORDERED: SODIUM PHOS / POTASSIUM PHOS 1 PKT PDR PO PRN (17:20)
[2021-03-01] MEDS ORDERED: POTASSIUM CHLORIDE 10 MEQ TABER PO PRN (17:20)
[2021-03-01] MEDS ORDERED: HYDROcodone/APAP 5/325 MG 1 TAB TAB PO PRN (17:20)
[2021-03-01] MEDS ORDERED: LORazepam 2 MG/ML VIAL IM/IVP PRN (17:20)
[2021-03-01 18:09] LABS: PROTHROMBIN TIME 10.6 secs (10.8-13.4)
[2021-03-01 18:20] LABS: CHOL/HDL RATIO 2.1 (1-4.5); FREE T4 (FREE THYROXINE) 0.97 ng/dL (0.76-1.46); PHOSPHORUS 3.2 mg/dL (2.5-4.9)
--- NOTE | 2021-03-01 19:20 | NUR ---
MRSA SWAB DONE. WALKED TO LAB
--- NOTE | 2021-03-01 19:22 | NUR ---
REPORT GIVEN TO CARON ESCALANTE. ALL CARES TRANSFERRED AT THIS TIME.
--- NOTE | 2021-03-01 19:22 | NUR ---
RECEIVED REPORT FROM CARON CRUZ FOR CONTINUITY OF CARE
--- NOTE | 2021-03-01 19:26 | NUR ---
Patient appears to be in low fowlers. Vital Signs within normal limits. Respirations even. Patient slightly restless and calling out incomprehensive words. AAOx1- to name. Iv on the right forearm is flushable with 10ml of NS. Safety measures are in place, will continue to monitor patient.
--- NOTE | 2021-03-01 19:47 | NUR ---
ARTURO COLLECTED SENT TO LAB RECEIVED BY [facility]
--- NOTE | 2021-03-01 20:47 | NUR ---
called RN for report-- no answer at this time
--- NOTE | 2021-03-01 21:03 | NUR ---
Patient will be admitted to care of Marlo WILHELM. Admited to Telemetry. Will go to room 110b. Belongings list completed. Report to Allison REARDON.
--- NOTE | 2021-03-01 21:15 | NUR ---
ADMITTED FROM ER A89 Y/O FEMALE VIA GURNEY WITH THE CC: GENERALIZED WEAKNESS, UTI. NO S/S OF RESPIRATORY DISTRESS. SKIN WARM AND DRY TO TOUCH. LUNGS CLEAR ON AUSCULTATION. BOWEL SOUNDS PRESENT IN ALL 4 QUADRANT. MRSA SCREENING ON TELE MONITOR. DONE. WILL CONTINUE TO MONITOR.
[2021-03-02] VITALS: BP 134/61
--- NOTE | 2021-03-02 02:00 | NUR ---
PATIENT IS SLEEPING. NO SOB NOTED. CALL LIGHT WITHIN REACH.
[2021-03-02] MEDS: NACL 0.9% 1,000 ML IV SCH ×2 (03:20→13:20)
[2021-03-02 04:00] VITALS: BP 134/70
[2021-03-02 06:57] LABS: ALBUMIN 3.5 g/dL (3.4-5.0); ANION GAP 10.7 (8-16); ASPARTATE AMINOTRANSFERASE 33 U/L (15-37); CARBON DIOXIDE 29.9 mmol/L (21-32); CHLORIDE 107 mmol/L (98-107); CREATININE 0.9 mg/dL (0.6-1.3); GLUCOSE 67 mg/dL (74-106); POTASSIUM 3.6 mmol/L (3.5-5.1); SODIUM SERUM 144 mmol/L (136-145); TOTAL BILIRUBIN 0.5 mg/dL (0.0-1.0); UREA NITROGEN, BLOOD 32 mg/dL (7-18)
[2021-03-02 07:02] LABS: BASOPHILS # (AUTO) 0.1 K/uL (0.00-0.22); BASOPHILS % (AUTO) 0.9 % (0.0-2.0); EOSINOPHILS # (AUTO) 0.2 K/uL (0-0.4); EOSINOPHILS % (AUTO) 2.9 % (0.0-4.0); HEMATOCRIT 34.8 % (36-48); HEMOGLOBIN 11.6 g/dL (12.0-16.0); LYMPHOCYTES # (AUTO) 0.7 K/uL (2.5-16.5); LYMPHOCYTES % (AUTO) 12.6 % (20.5-51.1); MEAN CORPUSCULAR HEMOGLOBIN 31 pg (27-31); MEAN CORPUSCULAR HGB CONC 33 g/dL (33-37); MEAN CORPUSCULAR VOLUME 91.6 fL (80-94); MONOCYTES # (AUTO) 0.6 K/uL (0.8-1.0); MONOCYTES % (AUTO) 10.7 % (1.7-9.3); NEUTROPHILS # (AUTO) 4.3 K/uL (1.8-7.7); NEUTROPHILS % (AUTO) 72.9 % (42.2-75.2); PLATELET COUNT (AUTO) 231 K/uL (140-450); RED BLOOD CELL COUNT(AUTO) 3.81 MIL/uL (4.20-5.40)
--- NOTE | 2021-03-02 07:34 | NUR ---
ENDORSED TO AM NURSE FOR CONTINUITY OF CARE. PATIENT IS STABLE.
[2021-03-02 08:00] VITALS: BP 146/51
--- NOTE | 2021-03-02 08:42 | NUR ---
PATIENT HAS BEEN SCREENED AND CATEGORIZED LOW NUTRITION RISK. PATIENT WILL BE SEEN WITHIN 7 DAYS OF ADMISSION. 03/08/[address]
--- NOTE | 2021-03-02 09:13 | NUR ---
PATIENT LYING DOWN IN BED SLEEPING, AROUSABLE BY VOICE. NO DISTRESS NOTED. CONDITION UNCHANGED. WILL CONTINUE TO MONITOR.
--- NOTE | 2021-03-02 11:40 | NUR ---
PATIENT LYING DOWN IN BED. NO DISTRESS NOTED. CONDITION UNCHANGED. WILL CONTINUE TO MONITOR.
[2021-03-02 12:00] VITALS: BP 125/50
--- NOTE | 2021-03-02 13:56 | NUR ---
SCHEDULED MEDICATIONS DUE GIVEN. WILL CONTINUE TO MONITOR.
[2021-03-02 16:00] VITALS: BP 96/56
--- NOTE | 2021-03-02 17:30 | NUR ---
PATIENT LYING DOWN IN BED. CONTINUES TO BE CONFUSED, TALKING TO SOMEONE IN ROOM. NO DISTRESS NOTED. WILL CONTINUE TO MONITOR.
--- NOTE | 2021-03-02 19:27 | NUR ---
GAVE REPORT TO JACK SETTER NURSE FOR CONTINUITY OF CARE. PATIENT IN STABLE CONDITION.
[2021-03-02] MEDS ORDERED: ATORVASTATIN 20 MG TAB PO SCH (21:00)
[2021-03-02] MEDS ORDERED: DONEPEZIL 10 MG TAB PO SCH (21:00)
--- NOTE | 2021-03-02 22:23 | NUR ---
PATIENT IS DISORIENTED, RESTLESS AND AGITATED. PT IS REFUSING TO HAVE VITAL SIGNS CHECKED. PATIENT IS ALSO TAKING OFF TELE MONITOR AND ATTEMPTING TO PULL IV LINE. REORIENTED PATIENT TO PLACE, TIME AND SITUATION BUT PATIENT BECAME MORE AGITATED. PT THREW TELE BOX AND STARTED HITTING. PRN MEDICATION ADMINISTERED. WILL CONTINUE TO MONITOR
[2021-03-02] MEDS: QUEtiapine FUMARATE 25 MG TAB PO SCH (22:27)
[2021-03-03] VITALS: BP 103/49
[2021-03-03] MEDS: NACL 0.9% 1,000 ML IV SCH ×2 (01:03→09:20)
--- NOTE | 2021-03-03 01:49 | NUR ---
PATIENT ASLEEP IN BED. NO S/S OF DISTRESS NOTED
[2021-03-03 04:32] VITALS: BP 154/85
--- NOTE | 2021-03-03 07:39 | NUR ---
PT REPORT GIVEN TO AM NURSE. PT ENDORSED IN STABLE CONDITION
--- NOTE | 2021-03-03 07:44 | NUR ---
RECEIVED REPORT FROM NIGHT NURSE PT IS AWAKE AND CONFUSED, INCOHNTINENT, ON PUREE DIET AND TELEMONITOR, IV ON THE RIGHT AC WITH NS AT 100 MLS/HR INFUSING WELL, SKIN INTACT. SAFETY MEASURES IN PLACE AND CALL LIGHT WITHIN REACH. WILL CONTINUE TO MONITOR.
[2021-03-03 07:51] LABS: BASOPHILS % (AUTO) 0.6 % (0.0-2.0); EOSINOPHILS # (AUTO) 0.3 K/uL (0-0.4); EOSINOPHILS % (AUTO) 4.9 % (0.0-4.0); HEMATOCRIT 31.7 % (36-48); HEMOGLOBIN 10.8 g/dL (12.0-16.0); LYMPHOCYTES # (AUTO) 0.8 K/uL (2.5-16.5); LYMPHOCYTES % (AUTO) 11.6 % (20.5-51.1); MEAN CORPUSCULAR HEMOGLOBIN 31 pg (27-31); MEAN CORPUSCULAR HGB CONC 34 g/dL (33-37); MONOCYTES # (AUTO) 0.8 K/uL (0.8-1.0); MONOCYTES % (AUTO) 11.2 % (1.7-9.3); NEUTROPHILS # (AUTO) 5.1 K/uL (1.8-7.7); NEUTROPHILS % (AUTO) 71.7 % (42.2-75.2); PLATELET COUNT (AUTO) 212 K/uL (140-450); RED BLOOD CELL COUNT(AUTO) 3.52 MIL/uL (4.20-5.40); WHITE BLOOD COUNT (AUTO) 7.1 K/uL (4.8-10.8)
[2021-03-03 08:00] VITALS: BP 146/81
[2021-03-03 08:22] LABS: ALBUMIN 2.8 g/dL (3.4-5.0); ANION GAP 9.9 (8-16); ASPARTATE AMINOTRANSFERASE 28 U/L (15-37); CARBON DIOXIDE 27.1 mmol/L (21-32); CHLORIDE 109 mmol/L (98-107); CREATININE 0.8 mg/dL (0.6-1.3); GLUCOSE 85 mg/dL (74-106); SODIUM SERUM 143 mmol/L (136-145); TOTAL BILIRUBIN 0.4 mg/dL (0.0-1.0); UREA NITROGEN, BLOOD 28 mg/dL (7-18)
[2021-03-03] MEDS: QUEtiapine FUMARATE 25 MG TAB PO SCH (08:25)
--- NOTE | 2021-03-03 08:37 | NUR ---
ADMINISTERED MEDICATION, CHECK VITAL SIGNS BP 146/81 GA 63. PT IS CONFUSED AND ABLE TO GIVE MEDICATION. WILL CONTINUE TO MONITOR.
[2021-03-03] MEDS ORDERED: ASPIRIN 81 MG TAB.CHEW PO SCH (09:00)
[2021-03-03] MEDS ORDERED: hydroCHLOROthiazide 25 MG TAB PO SCH (09:00)
[2021-03-03] MEDS ORDERED: PANTOPRAZOLE 40 MG TABEC PO SCH (09:00)
[2021-03-03] MEDS ORDERED: CIPR500T4 PO (10:33)
[2021-03-03] MEDS ORDERED: KCL 20 MEQ/WATER INJ PREMIX 200 ML IV SCH (10:45)
[2021-03-03 11:18] LABS: MAGNESIUM 1.8 mg/dL (1.8-2.4)
--- NOTE | 2021-03-03 11:30 | NUR ---
PATIENT POTASSIUM LEVEL 3.0 KRIDER 40 MEQ GIVEN. INFUSING WELL,.
[2021-03-03 12:00] VITALS: BP 103/41
[2021-03-03] MEDS ORDERED: POTASSIUM CHLORIDE 40 MEQ, LIDOCAINE MPF 1% 25 MG in NACL 0.9% 250 ML IV SCH (12:00)
--- NOTE | 2021-03-03 12:31 | NUR ---
ADMINISTERED SCHEDULED MEDICATION AND GAVE ADDITIONAL KDUR [address] LAMB ORDER. PT POTASSIUM IS 3.0.
--- NOTE | 2021-03-03 13:40 | NUR ---
PT WAS SEEN FOR DYSPHAGIA. PT WAS ABLE TO SAFELY SWALLOW PUREE DIET WITH THIN LIQUID. MILD DIFFICULTY WITH MASTICATION SKILLS FOR MS DIET. RECOMMENDATION\ PUREE DIET WITH THIN LIQUID
--- NOTE | 2021-03-03 14:40 | NUR ---
DISCHARGED INSTRUCTIONS GIVEN TO PT AT THE BEDSIDE AND GAVE REPORT TO [facility]. INSTRUCTED TO CONTINUE MEDICATION AND TO CONTINUE PHYSICAL THERAPY 3X A WEEK. REMOVED ID BANDS AND IV INTACT AND COMPLETE NO BLEEDING. CHANGED PT GOWN AND PT ESCORTED TO FRONT LOBBY ACCOMPANIED BY ANTI AIR WARFARE OPERATIONS OFFICER. PT TOOK ALL HER BELONGINGS AND PT IS STABLE.
[2021-03-03] MEDS ORDERED: VECURONIUM 20 MG in NACL 0.9% 100 ML IV SCH (15:00)
[2021-03-09] MEDS ORDERED: ALENDRONATE SODIUM 70 MG TAB PO SCH (09:00)
== END 2021-03-03 14:40 | DRG 690 ==
LOC: MED 11:38 → MTU 17:20
PROVIDERS: ADMIT Family Medicine; ATTEND Family Medicine
DX: N39.0 Urinary tract infection, site not specified (principal); E87.6 Hypokalemia; K21.9 Gastro-esophageal reflux disease without esophagitis; F03.90 Unspecified dementia, unspecified severity, without behavioral disturbance, psychotic disturbance, mood disturbance, and anxiety; I10 Essential (primary) hypertension; Z66 Do not resuscitate; M81.0 Age-related osteoporosis without current pathological fracture; E78.5 Hyperlipidemia, unspecified; I25.10 Atherosclerotic heart disease of native coronary artery without angina pectoris; Z20.822 Contact with and (suspected) exposure to COVID-19; E86.0 Dehydration; Z79.82 Long term (current) use of aspirin; Z79.899 Other long term (current) drug therapy
CPT/HCPCS: 36415; 71045; 80053; 81001; 82150; 83036; 83605; 83690; 83735; 83880; 84100; 84439; 84443; 84484; 85025; 85610; 85730; 87040; 87081; 87086; 92610; 93005; 96365; 97163-GP; 97530; 99285; J0696; J2001; J2060; J3480; J7030; J7060; Q0092